=== PATIENT | female | born 1960 | race Caucasian/White ===

== ENCOUNTER → 2016-08-08 | Outpatient (CLI) | payer OTHER | LOC: BRMIMAGING 11:40 | DX: Z12.31 Encounter for screening mammogram for malignant neoplasm of breast (principal) | CPT/HCPCS: G0202 ==

== ENCOUNTER → 2017-03-13 | Outpatient (CLI) | payer OTHER | LOC: BRMIMAGING 13:45 | PROVIDERS: ATTEND Family Medicine | DX: S46.911A Strain of unspecified muscle, fascia and tendon at shoulder and upper arm level, right arm, initial encounter (principal); M19.011 Primary osteoarthritis, right shoulder; M51.34 Other intervertebral disc degeneration, thoracic region; S83.011A Lateral subluxation of right patella, initial encounter; S83.012A Lateral subluxation of left patella, initial encounter | CPT/HCPCS: 73030-PO; 73562-PO ==

== ENCOUNTER → 2017-08-21 | Outpatient (CLI) | payer OTHER | LOC: BRMIMAGING 14:34 | PROVIDERS: ATTEND Family Medicine | DX: Z12.31 Encounter for screening mammogram for malignant neoplasm of breast (principal) ==

== ENCOUNTER → 2018-09-08 | Outpatient (CLI) | payer OTHER | LOC: BRMIMAGING 14:32 | PROVIDERS: ATTEND Family Medicine | DX: Z12.31 Encounter for screening mammogram for malignant neoplasm of breast (principal) ==

== ENCOUNTER → 2018-09-22 | Outpatient (CLI) | payer OTHER | LOC: BRMIMAGING 13:52 | PROVIDERS: ATTEND Physician Assistant Medical | DX: Z00.00 Encounter for general adult medical examination without abnormal findings (principal) | CPT/HCPCS: 76641-PO ==